=== PATIENT | male | born 1945 | race Caucasian/White ===

== ENCOUNTER 2017-12-14 14:16 | Inpatient (IN) | payer MEDICARE ==
[~2017-12-14] VITALS: Ht 180.3 cm; Wt 96.7 kg
[2017-12-14] MEDS ORDERED: CITA10TA8 PO (14:43)
[2017-12-14] MEDS ORDERED: LOSA25TA5 PO (14:43)
[2017-12-14] MEDS ORDERED: CALC-151 PO (14:43)
[2017-12-14] MEDS ORDERED: OMEG-157 PO (14:43)
[2017-12-14] MEDS ORDERED: ASPI-496 PO (14:43)
[2017-12-14] MEDS ORDERED: PRAV20TA2 PO (14:43)
[2017-12-14] MEDS ORDERED: NITROGLYCERIN OINT 2%, 1GM TP ONE ×2 (14:54→15:00)
[2017-12-14] MEDS ORDERED: LORazepam 2 MG/ML, 1ML ONE (14:58)
[2017-12-14] MEDS ORDERED: SODIUM CHLORIDE FLUSH 10ML SYR IVF ONE (15:00)
[2017-12-14] MEDS ORDERED: TICAGRELOR 90 MG TABLET ONE (15:10)
[2017-12-14] MEDS ORDERED: FENTANYL PF 100 MCG/2ML ONE (15:10)
[2017-12-14] MEDS ORDERED: MIDAZOLAM 1 MG/ML, 5ML ONE (15:10)
[2017-12-14] MEDS ORDERED: LIDOCAINE 2%, 2ML ONE (15:10)
[2017-12-14] MEDS ORDERED: BIVALIRUDIN 250 MG ONE (15:11)
[2017-12-14] MEDS ORDERED: HEPARIN 1,000 UNITS/ML, 10ML ONE (15:11)
[2017-12-14 15:18] LABS: BASOPHILS # (AUTO) 0.03 x10^3/uL (0-0.1); BASOPHILS % (AUTO) 0 % (0-1); EOSINOPHILS # (AUTO) 0.08 x10^3/uL (0-0.4); EOSINOPHILS % (AUTO) 1 % (1-7); LYMPHOCYTES # (AUTO) 0.74 x10^3/uL (1-3.4); LYMPHOCYTES % (AUTO) 10 % (22-44); MD NO; MEAN CORPUSCULAR HEMOGLOBIN 28.3 pg (27.5-34.5); MEAN CORPUSCULAR VOLUME 85.9 fL (81-97); MEAN PLATELET VOLUME 10.6 fL (7.4-10.4); MONOCYTES % (AUTO) 6 % (2-9); NEUTROPHILS # (AUTO) 5.98 x10^3/uL (1.8-6.8); NEUTROPHILS % (AUTO) 83 % (42-75); PLATELET COUNT 181 x10^3/uL (130-400); RED BLOOD COUNT 5.54 x10^6/uL (4.38-5.82); RED CELL DISTRIBUTION WIDTH 13.3 % (9.4-14.8)
[2017-12-14 15:30] LABS: ALBUMIN 3.6 g/dL (3.4-5.0); ANION GAP 7 mmol/L (5-15); CALCIUM 8.8 mg/dL (8.5-10.1); CHLORIDE 106 mmol/L (98-107); CREATININE 1.31 mg/dL (0.7-1.3)
[2017-12-14] MEDS ORDERED: LORazepam 2 MG/ML, 1ML IVPush ONE (15:30)
[2017-12-14] MEDS ORDERED: BISACODYL 5 MG EC TABLET PO PRN (16:30)
[2017-12-14] MEDS ORDERED: ACETAMINOPHEN 325 MG TABLET PO PRN (16:30)
[2017-12-14] MEDS ORDERED: ONDANSETRON 2MG/ML, 2ML IVPush PRN (16:30)
[2017-12-14] MEDS ORDERED: hydrALAzine 20 MG/ML, 1ML IV PRN (16:30)
[2017-12-14] MEDS ORDERED: SODIUM CHLORIDE 0.9% 1,000 ML IV SCH (17:00)
[2017-12-14 18:34] VITALS: BP 120/67
[2017-12-14] MEDS ORDERED: ATORVASTATIN 80 MG TABLET PO SCH (21:00)
[2017-12-14] MEDS ORDERED: ZOLPIDEM 5MG TABLET PO PRN (21:00)
[2017-12-14] MEDS: TICAGRELOR 90 MG TABLET PO SCH (22:17)
[2017-12-14] MEDS: METOPROLOL TARTRATE 25 MG TABLET PO SCH (22:18)
[2017-12-15 01:41] VITALS: BP 105/58
[2017-12-15 05:38] LABS: ALBUMIN 3.1 g/dL (3.4-5.0); ANION GAP 8 mmol/L (5-15); CALCIUM 8.4 mg/dL (8.5-10.1); CHLORIDE 107 mmol/L (98-107)
[2017-12-15 05:39] LABS: CREATININE 1.17 mg/dL (0.7-1.3)
[2017-12-15 06:51] VITALS: BP 102/63
[2017-12-15 07:38] LABS: TROPONIN I 0.419 ng/mL (0.000-0.045)
[2017-12-15] MEDS: METOPROLOL TARTRATE 25 MG TABLET PO SCH (08:29)
[2017-12-15] MEDS: TICAGRELOR 90 MG TABLET PO SCH (08:29)
[2017-12-15] MEDS ORDERED: TICA90TA PO (08:55)
[2017-12-15] MEDS ORDERED: ATOR-2 PO (08:58)
[2017-12-15] MEDS ORDERED: ASPIRIN 81 MG TABLET EC PO SCH (09:00)
[2017-12-15] MEDS ORDERED: NITR0.4T28 SL (09:24)
== END 2017-12-15 12:16 | disposition home or self-care (01) | DRG 246 ==
LOC: ED 15:00 → 5SO 16:29
PROVIDERS: ADMIT Internal Medicine Cardiovascular Disease; ATTEND Internal Medicine Cardiovascular Disease
PROC: 4A023N7 Measurement of Cardiac Sampling and Pressure, Left Heart, Percutaneous Approach (ICD-10-PCS; principal; 2017-12-14)
PROC: 027035Z Dilation of Coronary Artery, One Artery with Two Drug-eluting Intraluminal Devices, Percutaneous Approach (ICD-10-PCS; 2017-12-14)
PROC: B2111ZZ Fluoroscopy of Multiple Coronary Arteries using Low Osmolar Contrast (ICD-10-PCS; 2017-12-14)
PROC: B2151ZZ Fluoroscopy of Left Heart using Low Osmolar Contrast (ICD-10-PCS; 2017-12-14)
DX: I25.110 Atherosclerotic heart disease of native coronary artery with unstable angina pectoris (principal); N17.0 Acute kidney failure with tubular necrosis; I25.82 Chronic total occlusion of coronary artery; E11.9 Type 2 diabetes mellitus without complications; E78.5 Hyperlipidemia, unspecified; I10 Essential (primary) hypertension; F32.9 Major depressive disorder, single episode, unspecified; Z79.899 Other long term (current) drug therapy; Z87.891 Personal history of nicotine dependence; Z95.5 Presence of coronary angioplasty implant and graft
CPT/HCPCS: 36415; 71045; 80048; 82040; 84484; 85014; 85018; 85025; 93005; 93306; 93458; 96374; 99156; 99157; C1769; C1894; C9600; J0583; J1644; J2250; J3010; J3490; C1725; C1874; C1887; J2060; Q9967